=== PATIENT | female | born 1950 | race Caucasian/White ===

== ENCOUNTER 2020-03-19 09:45 | Inpatient (IN) | payer MEDICARE, BC, OTHER ==
[2020-03-19] VITALS (12 sets, daily range): BP systolic 110–132; BP diastolic 50–73; PULSE 63–73; TEMP 97.3–98.4
[~2020-03-19] VITALS: Ht 172.7 cm; Wt 131.3 kg
[~2020-03-19 09:45] MED LIST: BYSTOLIC10 MG PO; CLARITIN 1010 MG/TAB PO; CRESTOR20 MG PO; CYMBALTA 60MG60 MG PO; GLUCOPHAGE500 MG/TAB PO; HCTZ 25MG TAB25 MG PO; LASIX 80MG TABL80 MG PO; MICARDIS80 MG PO; MOTRIN 600600 MG/TAB PO; NORCO 325 MG-7.1 TAB PO; PRILOSEC 20MG20 MG PO; PROAIR HFA0.09 MG/AC IH; SIMPONI50 MG/0.5 SC; WELLBUTRIN XL300 M1 PO; XOPENEX HF0.045 MG/A IH
[2020-03-19 13:56] LABS: CREATININE, serum 1.48 (0.52-1.25); POTASSIUM 3.6 mmol/L (3.4-5.0)
--- NOTE | 2020-03-19 14:11 | NUR ---
SEE MERGE DOCUMENTATION FOR MEDICATION ADMINISTRATION AND INTRA/POST PROCEDURE SEDATION ASSESSMENTS.
--- NOTE | 2020-03-19 15:00 | NUR ---
Patient returned from procedure at 1430, right groin site dressing is clean, dry and intact. There is no hematoma observed, tissue is soft. Denies having any pain aside slight pain in the back which she states is tolerable at this time.
--- NOTE | 2020-03-19 19:27 | NUR ---
Resting in bed. Assessment complete. Lungs clear. Heart sounds normal. Bowels active x4. Pulses present throughout. No edema noted. IV right AC/elbow infusing without complications. Right groin heart cath site CDI. Ambulated to restroom and returned to bed. Denies needs at this time. Call light in reach. Denies pain.
[2020-03-19] MEDS ORDERED: LANTUS SOLOS100 U/ML SQ (20:52)
--- NOTE | 2020-03-19 21:00 | NUR ---
Patient does not desire DNR order. Spoke with Mary NI will change to Full code.
[2020-03-20 00:03] VITALS: BP 121/49; PULSE 68; TEMP 97.8
--- NOTE | 2020-03-20 00:15 | NUR ---
Resting in bed. Denies needs. Call light in reach.
[2020-03-20 04:45] VITALS: BP 133/59; PULSE 73; TEMP 98.2
--- NOTE | 2020-03-20 06:15 | NUR ---
Patient IV in right AC infiltrated. Unable to obtain new access. Per Mary NI okay to leave IV out, may discharge today. Otherwise uneventful night. Resting in bed this AM. Recently showered. Call light in reach.
[2020-03-20 06:20] LABS: BASO # 0.1 (0.0-0.2); BASO % 0.8 % (0.0-2.0); EOS # 0.3 (0.0-0.7); EOS % 2.9 % (0-4.0); GRAN # 4.5 (1.4-6.5); GRAN % 51.4 % (42.2-75.2); HEMATOCRIT 40.1 % (37.0-47.0); HEMOGLOBIN 13.5 g/dl (12.5-16.0); LYMPH % 34.6 % (20.0-51.0); MEAN CELL VOLUME 92 fl (80.0-100.0); MEAN CORPUSCULAR HEMOGLOBIN 31 pg (27.0-31.0); MEAN CORPUSCULAR HGB CONC 34 g/dl (33.0-37.0); MEAN PLATELET VOLUME 10.2 fl (7.4-10.4); MONO # 0.8 (0.1-0.6); MONO % 9.6 % (1.7-9.3); PLATELET COUNT 277 K/mm3 (130-400); RED BLOOD COUNT 4.37 M/mm3 (4.10-5.30); REDCELL DISTRIBUTION WIDTH-CV 14.4 % (11.5-14.5)
[2020-03-20 06:35] LABS: CALCIUM 11.4 mg/dL (8.4-10.2); CREATININE, serum 1.31 (0.52-1.25); POTASSIUM 3.5 mmol/L (3.4-5.0)
--- NOTE | 2020-03-20 07:20 | NUR ---
Report given to DIANELYS Das
[2020-03-20 08:34] VITALS: BP 151/50; PULSE 77; TEMP 98.9
--- NOTE | 2020-03-20 08:35 | NUR ---
Assessment complete. Pt sitting up in bed. Alert and oriented. Denies pain or discomfort at this time. Pedal and radial pulses were difficult to palpate, extremities warm with adequate capillary refil. Patient is aware of her plan of care at this time. No IV site at this time OK per Mary DIEGO. No other needs were expressed at this time. Call light is within reach.
[2020-03-20 08:44] LABS: MAGNESIUM 1.7 mg/dL (1.6-2.3); PHOSPHOROUS 4.1 mg/dL (2.5-4.5)
[2020-03-20 09:12] LABS: THYROID STIMULATING HORMONE 1.68 uIU/mL (0.465-4.680)
[2020-03-20] MEDS ORDERED: LASIX 40MG TABL40 MG PO (09:17)
[2020-03-20] MEDS ORDERED: TOPROL XL 25MG25 MG PO (09:17)
--- NOTE | 2020-03-20 12:30 | NUR ---
Pt has left the floor. Discharge instructions were discussed. No further questions or concerns were expressed.
--- NOTE | 2020-03-20 13:58 | NUR ---
plan: To return home with Daughter Soniya [phone] as care support and EMR contact. Patient indicated there is no current DPOa, and she declined one at this time. Patient resides in [place], [place]. Assess: SW contacted patient by phone. Patient reports that she does utilize a CPAP machine while sleeping. She reports that she does notuse any other DME. Patient reports that her PCP is , she does not have any upcoming appointments, however indicated that she will be making one. patient gets her medications from [facility] in [place] with no complications. Patient denied having any care concerns at this time, and the need for home health services. Action: No additional concerns identified. Patient was educated about community resources and supports.
[2020-03-20 17:20] LABS: PTH,INTACT 7.7 pg/mL (6.6-88.9)
== END 2020-03-20 14:08 | disposition home or self-care (01) | DRG 261 ==
LOC: MEDICAL 09:45
PROVIDERS: Nurse Practitioner Family
PROC: 0JH632Z Insertion of Monitoring Device into Chest Subcutaneous Tissue and Fascia, Percutaneous Approach (ICD-10-PCS; principal; 2020-03-19)
PROC: 4A023N8 Measurement of Cardiac Sampling and Pressure, Bilateral, Percutaneous Approach (ICD-10-PCS; 2020-03-19)
PROC: B2111ZZ Fluoroscopy of Multiple Coronary Arteries using Low Osmolar Contrast (ICD-10-PCS; 2020-03-19)
DX: I21.4 Non-ST elevation (NSTEMI) myocardial infarction (principal); Z68.41 Body mass index [BMI] 40.0-44.9, adult; I13.0 Hypertensive heart and chronic kidney disease with heart failure and stage 1 through stage 4 chronic kidney disease, or unspecified chronic kidney disease; E66.01 Morbid (severe) obesity due to excess calories; I48.91 Unspecified atrial fibrillation; E11.22 Type 2 diabetes mellitus with diabetic chronic kidney disease; N18.3 Chronic kidney disease, stage 3 (moderate); E78.5 Hyperlipidemia, unspecified; I25.10 Atherosclerotic heart disease of native coronary artery without angina pectoris; M19.90 Unspecified osteoarthritis, unspecified site; Z85.3 Personal history of malignant neoplasm of breast; Z79.4 Long term (current) use of insulin
CPT/HCPCS: OP; 99223-AI; J1644; J1815; J2250; J3010; Q9967

== ENCOUNTER → 2020-12-15 | Outpatient (CLI) | payer MEDICARE, BC, OTHER ==
[~2020-12-15] VITALS: Ht 172.7 cm; Wt 137.5 kg
[~2020-12-15] MED LIST changes: +ASPIRIN 32325 MG/TAB PO; +HUMIRA(CF)40 MG/0.4 SQ; +LANTUS SOLOS100 U/ML SQ; +LASIX 40MG TABL40 MG PO; +TOPROL XL 25MG25 MG PO
[2020-12-15 08:04] VITALS: BP 158/67; PULSE 65
[2020-12-15 11:06] VITALS: BP 159/77; PULSE 58
== END ==
LOC: COL.RAD 07:21
DX: E11.610 Type 2 diabetes mellitus with diabetic neuropathic arthropathy (principal)
CPT/HCPCS: J2250; J2704; J7030

== ENCOUNTER → 2021-11-02 | Outpatient (CLI) | payer MEDICARE, BC, OTHER ==
[~2021-11-02] VITALS: Ht 172.7 cm; Wt 133.4 kg
[2021-11-02 09:07] VITALS: BP 144/97; PULSE 57; TEMP 97.6
--- NOTE | 2021-11-02 10:39 | NUR ---
PROCEDURE CANCELLED DUE TO HAVING BLADDER STIMULATOR. PT FORGOT ABOUT IT AND DID NOT BRING HER REMOTE.
== END ==
LOC: COL.RAD 08:34
DX: M86.9 Osteomyelitis, unspecified (principal)
CPT/HCPCS: J2250; J2704; J3010

== ENCOUNTER → 2022-01-04 | Outpatient (CLI) | payer MEDICARE, BC, OTHER ==
[~2022-01-04] VITALS: Ht 172.7 cm; Wt 134.4 kg
[~2022-01-04] MED LIST changes: +ASPIRIN 32325 MG/TA1 PO; +BUMEX2 MG PO; +CATAPRES0.2 MG PO; +COREG 25MG25 MG/TAB PO; +DAZIDOX10 MG PO; +FENTANYL 50MCG TD; +K-DUR20 MEQ PO; +LANTUS100 U/ML SQ; +LEVAQUIN 5500 MG/TA1 PO; +LOFIBRA160 MG PO; +LYRICA 75MG CAP75 MG PO; +MIRALAX PA17 GM/Dose PO; +NORVASC 10MG10 MG PO; +PRAVACHOL 40MG40 MG PO; +PROTONIX 40MG T40 MG PO; +SINGULAIR 110 MG/TAB PO; +TOPROL XL 50MG50 MG PO; +XANAX .25M0.25 MG/TA PO; +ZYLOPRIM 300MG300 MG PO
--- NOTE | 2022-01-04 11:10 | NUR ---
Informed Miguel Ángel Sher CRNA about blood sugar. Instructed to change fluids to D5 1/2 NS due to low blood sugar.
[2022-01-04 11:16] VITALS: BP 114/71; PULSE 95; TEMP 97.4
[2022-01-04 13:50] VITALS: BP 112/66; PULSE 96
[2022-01-04 14:05] VITALS: BP 100/70; PULSE 101
[2022-01-04 14:20] VITALS: BP 163/82; PULSE 97
== END ==
LOC: COL.RAD 01-02 11:45
DX: M86.8X7 Other osteomyelitis, ankle and foot (principal); E11.610 Type 2 diabetes mellitus with diabetic neuropathic arthropathy; R22.42 Localized swelling, mass and lump, left lower limb; M65.862 Other synovitis and tenosynovitis, left lower leg; A52.16 Charcot's arthropathy (tabetic)
CPT/HCPCS: A9575; J2250; J2704